=== PATIENT | male | born 1975 | race Caucasian/White ===

== ENCOUNTER 2021-11-05 19:23 | Emergency (ER) | payer OTHER, SELFPAY ==
--- NOTE | 2021-11-05 19:41 | CRLHL7_ITS ---
For Patients: As a result of the Century Cures Act, medical imaging exams and procedure reports are released immediately into your electronic medical record. You may view this report before your referring provider. If you have questions, please contact your health care provider. Indication: Fall on outstretched hand. Technique: Left hand, 3 views. Comparison: None. Findings: Bones: Partially visualized comminuted fracture of the distal radius. Please see wrist radiographs for further details.. Joint spaces: Unremarkable. Soft tissues: Unremarkable. Impression: No sign of acute injury in the hand. Partially visualized comminuted fracture of the distal radius. Please see wrist radiographs for further details. Dictated by Drew Woods MD @ 11/05/2021 8:25:03 PM (Electronically Signed)
--- NOTE | 2021-11-05 19:41 | CRLHL7_ITS ---
For Patients: As a result of the Century Cures Act, medical imaging exams and procedure reports are released immediately into your electronic medical record. You may view this report before your referring provider. If you have questions, please contact your health care provider. Indication: Fall on outstretched hand. Technique: Left wrist, 3 views. Comparison: None. Findings/impression: Bones: Comminuted impacted fracture of the distal radius is identified with extension to the articular surface. There is probably also a small nondisplaced transverse fracture of the ulnar styloid process.. Joint spaces: Unremarkable. Soft tissues: Soft tissue swelling surrounding the fracture site.. Dictated by Drew Woods MD @ 11/05/2021 8:18:11 PM (Electronically Signed)
[2021-11-05 19:43] VITALS: BP 149/77; PULSE 77; RESP 16; TEMP 37.2; O2SAT 97; BMI 29.7
--- NOTE | 2021-11-05 20:39 | CRLHL7_ITS ---
For Patients: As a result of the Century Cures Act, medical imaging exams and procedure reports are released immediately into your electronic medical record. You may view this report before your referring provider. If you have questions, please contact your health care provider. Indication: Fall left wrist injury status post reduction Technique: Three views. Comparison: 11/05/2021 print. Findings/Impression: No significant change in the alignment of the comminuted mildly impacted intra-articular distal radius fracture. Mild apex volar angulation. No significant articular offset. Carpal alignment is normal. Cast material obscures fine osseous detail press Dictated by Hilario Gonzalez MD @ 11/05/2021 11:03:54 PM (Electronically Signed)
--- NOTE | 2021-11-05 20:41 | ED_ITS ---
HPI - General Adult General Chief complaint: Extremity Pain/Injury, Upper <Annie Valerio DO - Last Filed: 11/11/21 12:03> Stated complaint: Fall, L wrist injury <Annie Valerio DO - Last Filed: 11/11/21 12:03> Time Seen by Provider: 11/05/21 20:41 <Annie Valerio DO - Last Filed: 11/11/21 12:03> History of Present Illness HPI narrative: Miguelito is a 46yo male patient with workman's comp injury of left wrist due to fall onto outstretched arm at work resulting in pain, swelling, and decreased ROM. The injury occurred approximately 1400 on day of presentation. 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 The patient reports that at time of injury, he was pushing to freezer totes [address] him and the freezer tote forward. The patient has not had previous injury of the left wrist. The patient has not previously been seen for this Workman's Comp. injury. The patient reports that he is able to ambulate without assistance, and was able to immediately after injury. He reports he did not strike his head or have loss of consciousness. He did strike his left elbow and left knee, both with a minor abrasions and no significant pain or discomfort at present. The patient denies treatment prior to arrival today. Otherwise, the patient is in good health and denies other complaints. <Annie Valerio - Last Filed: 11/11/21 12:03> Related Data Home medications: Home Medications Medication Instructions Recorded Confirmed No Known Home Medications 11/05/21 11/07/21 <Annie Valerio, DO - Last Filed: 11/11/21 12:03> Allergies/adverse reactions: Allergies Allergy/AdvReac Type Severity Reaction Status Date / Time No Known Drug Allergies Allergy Verified 11/07/21 09:49 <Annie Valerio DO - Last Filed: 11/11/21 12:03> Review of Systems Const: Denies: fever or chills <Annie Valerio DO - Last Filed: 11/11/21 12:03> Eyes: Denies: change in vision or blurry vision <Annie Valerio, DO - Last Filed: 11/11/21 12:03> Musculo: Reports: back pain (Chronic per patient), extremity pain, extremity swelling, joint pain, limited range of motion and joint swelling <Annie [place], DO - Last Filed: 11/11/21 12:03> Neuro: Denies: numbness in extremities, weakness in extremities or dizziness <Annie Valerio DO - Last Filed: 11/11/21 12:03> PFSH PFS Social History: Social History Smoking Status: Never smoker Do you use any of these nicotine containing products: None Second hand tobacco smoke exposure: No How often do you have a drink containing alcohol: never AUDIT-C Alcohol total score: 0 Non-prescribed substance use: denies use <Annienoelle Valerio DO - Last Filed: 11/11/21 12:03> Exam Const: Vital Signs, click to edit/add: Vital Signs - 24 hr 11/05/21 19:43 Temperature 99.0 F Pulse Rate [Right Pulse Oximeter] 77 Respiratory Rate 16 Blood Pressure [Ri ght Upper Arm] 149/77 H Pulse Oximetry 97 Oxygen Delivery Me thod Room Air <Annie Valerio DO - Last Filed: 11/11/21 12:03> Vital Signs, click to edit/add: Vital Signs - 24 hr 11/05/21 19:43 Temperature 99.0 F Pulse Rate [Right Pulse Oximeter] 77 Respiratory Rate 16 Blood Pressure [Ri ght Upper Arm] 149/77 H Pulse Oximetry 97 Oxygen Delivery Me thod Room Air <Kandi Rosado MD - Last Filed: 11/23/21 11:55> Documenting provider has reviewed patient's vital signs: yes <Annie Valerio DO - Last Filed: 11/11/21 12:03> Common normals: no apparent distress, oriented x3, healthy appearing, alert and well nourished <Annie Valerio DO - Last Filed: 11/11/21 12:03> General appearance: cooperative, comfortable, well kempt and well developed; not in distress <Annie Valerio DO - Last Filed: 11/11/21 12:03> Orientation/consciousness: Yes awake, Yes oriented to person, Yes oriented to place and Yes oriented to time <Annie Moscosoland, DO - Last Filed: 11/11/21 12:03> HENMT: Common normals: normocephalic and head/scalp atraumatic <Annie Moscosoland, DO - Last Filed: 11/11/21 12:03> Head and scalp: normocephalic and atraumatic <Annie Moscos[place]and, DO - Last Filed: 11/11/21 12:03> Resp: Common normals: normal respiratory effort and no use of accessory muscles <Annie Moscos[place]and, DO - Last Filed: 11/11/21 12:03> Effort & inspection: able to speak in complete sentences <Annie Moscosoland DO - Last Filed: 11/11/21 12:03> Cardio: Common normals: regular rate, regular rhythm and peripheral pulses 2+ throughout <Annie Moscosoland, DO - Last Filed: 11/11/21 12:03> Rate: regular rate <Annie Moscosoland, DO - Last Filed: 11/11/21 12:03> Rhythm: regular rhythm <Annie Moscosoland, DO - Last Filed: 11/11/21 12:03> Peripheral pulses: pulses 2+ throughout <Annie Moscosoland, DO - Last Filed: 11/11/21 12:03> Extremity: Common normals: normal capillary refill <Annie Moscosoland, DO - Last Filed: 11/11/21 12:03> General: normal exam except as noted and deformity (Posterior deformity noted in the wrist) <Annie Moscosoland, [employer] - Last Filed: 11/11/21 12:03> Left upper extremity: wrist Left wrist: inspection (Obvious deformity at the distal left forearm), palpation (Tender with palpation), ROM (Limited secondary to pain) and neurovascular exam (Sensation intact; 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) <Annie Moscosoland [employer] - Last Filed: 11/11/21 12:03> Neuro: Common normals: oriented x3, no focal motor deficits (Limited only secondary to pain and discomfort) and no sensory deficits noted <Annie Valerio [employer] - Last Filed: 11/11/21 12:03> Sensorium/orientation: awake, alert, oriented to person, oriented to place and oriented to time <Annie Valerio [employer] - Last Filed: 11/11/21 12:03> Psych: Common normals: mental status grossly normal, thought process normal, cooperative, affect normal, speech normal and activity/motor behavior normal <Annie Valerio [employer] - Last Filed: 11/11/21 12:03> Appearance: well kempt <Annie Valerio [employer] - Last Filed: 11/11/21 12:03> Speech: normal speech <Annie Valerio [employer] - Last Filed: 11/11/21 12:03> Thought process: normal thought process <Annie Valerio [employer] - Last Filed: 11/11/21 12:03> Insight: insight good <Annie Valerio DO - Last Filed: 11/11/21 12:03> Judgement: judgment good <Annie Valerio Yasuu Last Filed: 11/11/21 12:03> Skin: Common normals: no rashes or lesions noted <Annie Valerio DO - Last Filed: 11/11/21 12:03> Skin images (male): 1. Minor abrasion, hemostatic <Annie Valerio DO [employer] Last Filed: 11/11/21 12:03> General skin exam: no rashes or lesions noted <Annie Valerio DO [employer] Last Filed: 11/11/21 12:03> Course Course Hospital Course: Miguelito presented to emergency department after having a fall at work earlier in the day. The patient was unable to present earlier secondary to work obl igations. Upon arrival, the patient was placed in an ice pack in sling to assist with control of symptoms. The patient was also given Tylenol to assist with pain control. The patient's physical exam was noted to have deformity in the left distal forearm, imaging revealed that the patient had a fracture of the distal radius with mild displacement as well as potential ulnar styloid fracture. The patient had last meal just prior to arrival in emergency department, and therefore plan for hematoma block for reduction was determined. Dr. Rosado accepted the care of patient is shift change, and subsequently, the patient's wrist was reduced as far as with finger traps, gentle traction, patient and splinted. <Annie Valerio DO - Last Filed: 11/11/21 12:03> Reevaluation(s) Reevaluation #1: Procedure note: I discussed options with the patient in terms of propofol sedation verses hematoma block. He did not wish to proceed with propofol. Therefore, we attempted hematoma block. I anesthetized the fracture site with 5 mL of lidocaine with epinephrine. He had relatively good anesthesia with that. We placed in finger traps with 10 lb of traction. I did attempt to reduce the fracture using this method, I did not achieve significant movement of the fracture fragment despite reasonably good anesthesia. I simply was not able to achieve very much movement for some reason. As such, I splinted in place, discussed with him that this will need further management per orthopedics. <Kandi Rosado MD - Last Filed: 11/23/21 11:55> Vital Signs Vital signs: Initial Vital Signs Temperature 99.0 F 11/05/21 19:43 Temperature Source Temporal Artery Scan 11/05/21 19:43 Pulse Rate 77 11/05/21 19:43 Respiratory Rate 16 11/05/21 19:43 Blood Pressure 149/77 H 11/05/21 19:43 Blood Pressure Mean 101 11/05/21 19:43 Blood Pressure Position Sitting 11/05/21 19:43 Pulse Oximetry 97 11/05/21 19:43 Oxygen Delivery Method 11/05/21 19:43 Vital Signs Temperature 99.0 F 11/05/21 19:43 Pulse Rate 77 11/05/21 19:43 Respiratory Rate 16 11/05/21 19:43 Blood Pressure 149/77 H 11/05/21 19:43 Pulse Oximetry 97 11/05/21 19:43 Oxygen Delivery Method 11/05/21 19:43 Temperature 99.0 F 11/05/21 19:43 Pulse Rate 77 11/05/21 19:43 Respiratory Rate 16 11/05/21 19:43 Blood Pressure 149/77 H 11/05/21 19:43 Pulse Oximetry 97 11/05/21 19:43 Oxygen Delivery Method 11/05/21 19:43 <Annie Valerio DO - Last Filed: 11/11/21 12:03> Initial Vital Signs Temperature 99.0 F 11/05/21 19:43 Temperature Source Temporal Artery Scan 11/05/21 19:43 Pulse Rate 77 11/05/21 19:43 Respiratory Rate 16 11/05/21 19:43 Blood Pressure 149/77 H 11/05/21 19:43 Blood Pressure Mean 101 11/05/21 19:43 Blood Pressure Position Sitting 11/05/21 19:43 Pulse Oximetry 97 11/05/21 19:43 Oxygen Delivery Method 11/05/21 19:43 Vital Signs Temperature 99.0 F 11/05/21 19:43 Pulse Rate 77 11/05/21 19:43 Respiratory Rate 16 11/05/21 19:43 Blood Pressure 149/77 H 11/05/21 19:43 Pulse Oximetry 97 11/05/21 19:43 Oxygen Delivery Method 11/05/21 19:43 Temperature 99.0 F 11/05/21 19:43 Pulse Rate 77 11/05/21 19:43 Respiratory Rate 16 11/05/21 19:43 Blood Pressure 149/77 H 11/05/21 19:43 Pulse Oximetry 97 11/05/21 19:43 Oxygen Delivery Method 11/05/21 19:43 <Kandi Rosado MD - Last Filed: 11/23/21 11:55> Discharge Plan Discharge Clinical Impression: Distal radius fracture, left, Fracture of ulnar styloid <Annie Valerio DO - Last Filed: 11/11/21 12:03> Condition: Improved <Annie Valerio DO - Last Filed: 11/11/21 12:03> Instructions: Wrist Fracture in Adults (ED) <Annie Valerio DO - Last Filed: 11/11/21 12:03> Additional Instructions: Thank you for choosing [facility] for your care today. Take NSAID of choice - Advil, Aleve, Motrin, or substitute - scheduled per package directions with food for 72hrs. Use RICE - rest, ice, compression, and elevation - as needed for symptom control. I recommend following up with your primary physician/orthopedic surgeon in 1wk. Refrain from routine activity. If new or worsening symptoms develop or you have any concerns in the meantime, please call your primary care clinic or return to the ER for re-evaluation. <Annie Valerio DO - Last Filed: 11/11/21 12:03> Activity Level: Activity as Tolerated <Annie Valerio DO - Last Filed: 11/11/21 12:03> Activity as Tolerated <Kandi Rosado MD - Last Filed: 11/23/21 11:55> Discharge Diet: Regular <Annie Valerio DO - Last Filed: 11/11/21 12:03> Regular <Kandi Rosado MD - Last Filed: 11/23/21 11:55> Prescriptions: No Action No Known Home Medications <Annie Valerio DO - Last Filed: 11/11/21 12:03> Follow Up/Referrals: Provider,Not a Local [Primary Care Provider] - <Annie Valerio DO - Last Filed: 11/11/21 12:03> Stand Alone Forms: MyHealth Info Instructions <Annie Valerio DO - Last Filed: 11/11/21 12:03>
[2021-11-05] MEDS: ACETAMINOPHEN 325 MG TABLET 650 MG PO (20:54)
--- NOTE | 2021-11-05 23:26 | ED.NURSE ---
in room providing closed reduction with finger traps and weights. Wound care provided with ortho glass and zunilda wraps. Ortho follow-up appointment made.
== END 2021-11-05 23:15 | disposition home or self-care (01) ==
PROVIDERS: Emergency Provider Family Medicine
DX: S52.502A Unspecified fracture of the lower end of left radius, initial encounter for closed fracture (principal); S52.615A Nondisplaced fracture of left ulna styloid process, initial encounter for closed fracture; W01.0XXA Fall on same level from slipping, tripping and stumbling without subsequent striking against object, initial encounter; Y99.0 Civilian activity done for income or pay
CPT/HCPCS: 25605; 73100; 73110; 73130; 99283; 99284; A9270